=== PATIENT | male | born 1950 | race Caucasian/White ===

== ENCOUNTER 2016-11-21 20:59 | Emergency (ER) | payer OTHER, BC ==
[2016-11-21 21:09] VITALS: RESP 16; TEMP 98.1; O2SAT 95
[2016-11-21] MEDS ORDERED: LET GEL TOPICAL 1 EA SYR TP ONE (21:13)
[2016-11-21] MEDS ORDERED: SKIN ADHESIVE (DERMABOND) 1 EACH TP ONE (21:15)
--- NOTE | 2016-11-21 21:21 | EDPHY ---
H & P Time Seen by Provider: 11/21/16 21:10 HPI/ROS: This patient was cleaning a knife at home when he sustained the laceration to the right index finger shortly prior to arrival with mild pain and bleeding that stopped with direct pressure. The injuries to the dorsal distal phalanx. He reports mild pain. No exacerbating factors. ROS: Neuro: No numbness to the affected finger. Musculoskeletal: No difficulty moving the affected finger. Integumentary: No other injuries. 5 point ROS is otherwise negative Past Medical/Surgical History: Tetanus is up-to-date. He is otherwise healthy. Smoking Status: Never smoked Physical Exam: Physical Exam Vital signs are normal. General: No acute distress Cardiac: Brisk capillary refill is intact throughout the affected extremity. Skin: There is a 1 cm well-approximated laceration to the dorsal aspect of the index finger just proximal to the nail bed with no active bleeding. No rash or pallor. Neuro: Alert with no sensorimotor deficits in the affected finger. Constitutional: Initial Vital Signs Temperature (C) 36.7 C 11/21/16 21:08 Heart Rate 73 11/21/16 21:08 Respiratory Rate 16 11/21/16 21:08 Blood Pressure 176/110 H 11/21/16 21:08 O2 Sat (%) 95 11/21/16 21:08 O2 Delivery Mode Room Air Allergies/Adverse Reactions: No Known Allergies Allergy (Verified 11/21/16 21:07) Home Medications: Medication Instructions Recorded Steroid 11/21/16 MDM/Departure - MDM Procedures: Dermabond: After verbal consent the wound was anesthetized with let solution with good effect. Was clean with baby shampoo and saline by our tech under sterile conditions using Dermabond obtain good hemostasis and cosmesis. Patient tolerated this well. There were no complications. I counseled him regarding Dermabond Medications Given: Discontinued Medications Tetracaine/Epinephrine/Lidocaine (Let Gel Topical) 1 ea TP EDNOW ONE Stop: 11/21/16 21:14 Last Admin: 11/21/16 21:16 Dose: 1 ea - Depart Disposition: Home, Routine, Self-Care Clinical Impression: Finger laceration Qualifiers: Encounter type: initial encounter Finger: index finger Damage to nail status: without damage Foreign body presence: without foreign body Laterality: right Qualified Code(s): S61.210A - Laceration without foreign body of right index finger without damage to nail, initial encounter Condition: Good Instructions: Skin Adhesive Care (ED) Additional Instructions: Diagnosis: finger laceration Plan: Do not apply ointment to the glue as that would dissolve the glue. It is all right to get wet but do not scrub the area. Typically the glue will fall off in 5-10 days at which point the wound should be nearly healed. Return if you develop bleeding despite the glue, redness, discharge or other concerns for infection. Referrals: NONE *PRIMARY CARE P,. [Primary Care Provider] - As per Instructions
[2016-11-21 22:05] VITALS: BP 168/98; PULSE 70
== END 2016-11-21 22:00 | disposition home or self-care (01) ==
LOC: CED 20:59
PROC: 0HQFXZZ Repair Right Hand Skin, External Approach (ICD-10-PCS; principal; 2016-11-21)
DX: S61.210A Laceration without foreign body of right index finger without damage to nail, initial encounter (principal); W26.0XXA Contact with knife, initial encounter; Y92.009 Unspecified place in unspecified non-institutional (private) residence as the place of occurrence of the external cause